=== PATIENT | female | born 1960 | race Caucasian/White ===

== ENCOUNTER 2023-09-05 16:33 | Emergency (ER) | payer OTHER ==
[~2023-09-05] VITALS: Ht 152.4 cm; Wt 55.8 kg
[2023-09-05 16:45] VITALS: BP_SYST 172; PULSE 86; RESP 16; TEMP 98.2; O2SAT 100
[2023-09-05] MEDS ORDERED: IBUPROFEN 600 MG TABLET PO ONE (18:00)
[2023-09-05] MEDS: KETOROLAC TROMETHAMINE 30 MG VIAL IM ONE (18:02)
[2023-09-05] MEDS ORDERED: DICL20GE TP (20:53)
[2023-09-05] MEDS ORDERED: DICL50TA9 PO (20:53)
[2023-09-05 21:07] VITALS: BP_SYST 172; PULSE 85; RESP 16; TEMP 98.2; O2SAT 97
== END 2023-09-05 22:16 | disposition home or self-care (01) ==
LOC: SED 16:33
DX: M47.892 Other spondylosis, cervical region (principal); M54.12 Radiculopathy, cervical region; Z79.899 Other long term (current) drug therapy
CPT/HCPCS: 99285; 72125; 96372; J1885